=== PATIENT | male | born 1935 | race Caucasian/White ===

== ENCOUNTER 2019-08-22 03:25 | Outpatient (CLI) | payer MEDICARE, BC ==
[~2019-08-22 03:25] MED LIST: ALB0.5UD IH; ALBU18HF2 IH; ASPI-611 PO; ATR0.5NEB IH; ENZY1CAP5 PO; HYDR-3965 PO; IRON18TA PO; MELA1TAB21 PO; OMEP40CA13 PO; OXYGEN INH
== END 2019-08-22 23:59 | disposition home or self-care (01) ==
LOC: DIABETIC 03:25
PROVIDERS: ATTEND Internal Medicine Cardiovascular Disease
DX: R63.4 Abnormal weight loss (principal); K90.0 Celiac disease; R62.7 Adult failure to thrive; J44.9 Chronic obstructive pulmonary disease, unspecified; I50.9 Heart failure, unspecified; F17.200 Nicotine dependence, unspecified, uncomplicated
CPT/HCPCS: 97802

== ENCOUNTER 2020-07-21 18:02 | Emergency (ER) | payer MEDICARE, BC ==
[~2020-07-21] VITALS: Ht 167.6 cm; Wt 50.0 kg
[2020-07-21] MEDS ORDERED: normal saline 1000ML IV soln IVB ONE (18:45)
[2020-07-21] MEDS ORDERED: pantoprazole 40 MG vial IV ONE (18:45)
[2020-07-21 19:19] LABS: BASOPHILS % (AUTO) 0.2 % (0-1); EOSINOPHILS # (AUTO) 0.1 X10'3 (0-0.9); EOSINOPHILS % (AUTO) 0.4 % (0-6); HEMATOCRIT 33.4 % (42.0-52.0); HEMOGLOBIN 10.7 g/dl (14.0-17.9); LYMPHOCYTES # (AUTO) 0.9 X10'3 (1.1-4.8); LYMPHOCYTES % (AUTO) 5.7 % (21-51); MEAN CORPUSCULAR HEMOGLOBIN 30.4 PG (27.0-31.0); MEAN CORPUSCULAR HGB CONC 32.1 g/dL (33.0-36.5); MEAN CORPUSCULAR VOLUME 94.6 FL (78-98); MEAN PLATELET VOLUME 7.8 FL (7.4-10.4); MONOCYTES # (AUTO) 0.5 X10'3 (0-0.9); MONOCYTES % (AUTO) 3.1 % (2-12); NEUTROPHILS # (AUTO) 13.8 X10'3 (1.8-7.7); NEUTROPHILS % (AUTO) 90.6 % (42-75); PLATELET COUNT 516 X10'3 (140-440); RED BLOOD COUNT 3.53 X10'6 (4.70-6.10); RED CELL DISTRIBUTION WIDTH 15.5 % (11.5-14.5); WHITE BLOOD COUNT 15.3 X10'3 (4.5-11.0)
[2020-07-21 19:22] VITALS: BP 141/82
[2020-07-21 19:25] LABS: ALANINE AMINOTRANSFERASE 24 U/L (12-78); ALBUMIN 3.5 G/DL (3.4-5.0); ALBUMIN/GLOBULIN RATIO 0.8 (1.1-1.5); ALKALINE PHOSPHATASE 102 IU/L (46-116); ANION GAP 10 (8-16); ASPARTATE AMINO TRANSFERASE 22 U/L (10-37); BILIRUBIN,TOTAL 0.4 MG/DL (0.1-1.0); BLOOD UREA NITROGEN 49 MG/DL (7-18); BUN/CREATININE RATIO 27.4 (5.4-32.0); CALCIUM 9.4 MG/DL (8.5-10.1); CHLORIDE 97 MMOL/L (99-107); CREATININE 1.79 MG/DL (0.60-1.10); POTASSIUM 4.1 MMOL/L (3.5-5.1); SODIUM 135 MMOL/L (135-145); TOTAL CARBON DIOXIDE 28.3 MMOL/L (24-32); TOTAL PROTEIN 7.7 G/DL (6.4-8.2); eGFR 36 ML/MIN
[2020-07-21 19:28] LABS: LIPASE 392 U/L (73-393); TROPONIN I < 0.04 NG/ML (0.0-0.05)
[2020-07-21 20:02] LABS: GLUCOSE 198 MG/DL (70-104)
--- NOTE | 2020-07-21 20:45 | NUR ---
pt requesting to leave [facility]. refusing ct scan and no longer wants iv in. eder espinoza made aware
== END 2020-07-21 20:58 | disposition left against medical advice (07) ==
LOC: ER 18:02
DX: R10.12 Left upper quadrant pain (principal); R10.11 Right upper quadrant pain; K59.00 Constipation, unspecified; I10 Essential (primary) hypertension; J43.9 Emphysema, unspecified; F17.200 Nicotine dependence, unspecified, uncomplicated; Z79.82 Long term (current) use of aspirin; Z79.899 Other long term (current) drug therapy
CPT/HCPCS: 36415; 80053; 83690; 84484; 85025; 93005; 96374; 99284; C9113; J7030; 96361